=== PATIENT | male | born 1960 | race Hispanic/Latino ===

== ENCOUNTER 2021-02-13 17:13 | Emergency (ER) | payer OTHER ==
[~2021-02-13] VITALS: Ht 170.2 cm; Wt 95.3 kg
[2021-02-13] MEDS ORDERED: ONDANSETRON 4MG INJ IVP ONE (18:30)
[2021-02-13] MEDS ORDERED: MAG/ALUM/SIMETH 30 ML UDCUP PO ONE (18:30)
[2021-02-13] MEDS ORDERED: FAMOTIDINE 20MG VIAL IV ONE (18:30)
[2021-02-13 18:46] LABS: APPEARANCE,URINE CLOUDY (CLEAR); BILIRUBIN,URINE NEGATIVE (NEGATIVE); COLOR,URINE YELLOW (YELLOW); GLUCOSE, URINE (UA) NEGATIVE (NEGATIVE); KETONES,URINE >=80 mg/dL (NEGATIVE); LEUKOCYTE ESTERASE ,URINE NEGATIVE (NEGATIVE); NITRATE,URINE NEGATIVE (NEGATIVE); OCCULT BLOOD,URINE TRACE-INTACT (NEGATIVE); PH,URINE 7.5 (5.0-8.0); PROTEIN,URINE NEGATIVE (NEGATIVE); UROBILINOGEN,URINE 0.2 mg/dL (0.2-1.0)
[2021-02-13 18:56] LABS: AMORPHOUS SEDIMENT,UR Moderate /LPF (None Seen); BACTERIA,URINE Few /HPF (None Seen); SQUAMOUS EPITHELIAL CELL,UR None Seen /HPF (0-2); WBC,URINE 0-1 /HPF (0-1)
[2021-02-13 19:21] LABS: CREATININE 1.3 mg/dL (0.5-1.5); POTASSIUM 4.3 mmol/L (3.5-5.1)
[2021-02-13 19:26] LABS: ALBUMIN 4.4 g/dL (3.5-5.0); BILIRUBIN,TOTAL 0.4 mg/dL (0.2-1.0); TOTAL PROTEIN, SERUM 8.1 g/dL (6.0-8.3)
[2021-02-13 19:27] LABS: EOSINOPHILS % (AUTO) 0.4 % (0.0-8.0); LYMPHOCYTES % (AUTO) 13.2 % (21.0-51.0); MEAN CORPUSCULAR HEMOGLOBIN 29.5 pg (27.0-33.0); MEAN CORPUSCULAR HGB CONC 33.6 g/dL (32.0-36.0); MEAN CORPUSCULAR VOLUME 87.6 fL (79-99); MONOCYTES % (AUTO) 5.5 % (3.0-13.0); NEUTROPHILS % (AUTO) 80.5 % (40.0-77.0); PLATELET COUNT (AUTO) 299 K/uL (130-400); RED BLOOD CELL COUNT(AUTO) 5.02 MIL/uL (4.50-6.20); WHITE BLOOD COUNT (AUTO) 11.4 K/uL (4.8-10.8)
[2021-02-13] MEDS ORDERED: LORAZEPAM 2 MG/ML 1 ML VIAL IVP ONE (19:30)
[2021-02-13] MEDS ORDERED: FAMO-136 PO (20:09)
[2021-02-13] MEDS ORDERED: DICY20TA2 PO (20:09)
[2021-02-13 20:16] VITALS: BP 132/79
== END 2021-02-13 20:29 | disposition home or self-care (01) ==
LOC: EDH 17:13
DX: K29.70 Gastritis, unspecified, without bleeding (principal); K57.30 Diverticulosis of large intestine without perforation or abscess without bleeding; I10 Essential (primary) hypertension; Z88.5 Allergy status to narcotic agent
CPT/HCPCS: 36415; 71045; 74176; 80053; 81001; 83690; 84484; 85025; 93005; 96374; 96375; 99285; J2405; J3490